=== PATIENT | female | born 1945 | race Caucasian/White ===

== ENCOUNTER → 2017-05-16 | Outpatient (CLI) | payer MEDICARE, OTHER | LOC: LAB 07:03 | DX: E78.00 Pure hypercholesterolemia, unspecified (principal) ==

== ENCOUNTER → 2017-05-30 | Outpatient (CLI) | payer MEDICARE, OTHER | LOC: CARDREHAB 08:39 | DX: E78.00 Pure hypercholesterolemia, unspecified (principal); I44.0 Atrioventricular block, first degree; Z82.49 Family history of ischemic heart disease and other diseases of the circulatory system; E11.9 Type 2 diabetes mellitus without complications; I25.2 Old myocardial infarction | CPT/HCPCS: A9500 ==

== ENCOUNTER → 2018-08-17 | Outpatient (CLI) | payer MEDICARE, OTHER | LOC: RAD 16:11 | DX: M16.0 Bilateral primary osteoarthritis of hip (principal); M79.604 Pain in right leg ==

== ENCOUNTER → 2018-08-20 | Outpatient (CLI) | payer MEDICARE, OTHER | LOC: RAD 07:51 | DX: R22.41 Localized swelling, mass and lump, right lower limb (principal); M79.604 Pain in right leg ==

== ENCOUNTER → 2018-08-26 | Outpatient (CLI) | payer MEDICARE, OTHER | LOC: RAD 11:04 | DX: M81.0 Age-related osteoporosis without current pathological fracture (principal); M51.36 Other intervertebral disc degeneration, lumbar region; M41.86 Other forms of scoliosis, lumbar region; M79.604 Pain in right leg ==

== ENCOUNTER → 2018-09-22 | Outpatient (CLI) | payer MEDICARE, OTHER ==
[2018-09-22 08:53] LABS: ALBUMIN 4.2 g/dL (3.5-5.0); CALCIUM 9.6 mg/dL (8.4-10.2); POTASSIUM 4.2 mmol/L (3.6-5.0); TOTAL BILIRUBIN 0.5 mg/dL (0.2-1.3); TOTAL PROTEIN 6.6 g/dL (6.3-8.2)
== END ==
LOC: LAB 08:15
PROVIDERS: Family Medicine
DX: E78.00 Pure hypercholesterolemia, unspecified (principal)

== ENCOUNTER → 2018-09-28 | Outpatient (CLI) | payer MEDICARE, OTHER | LOC: RAD 14:15 | DX: M25.451 Effusion, right hip (principal); R22.41 Localized swelling, mass and lump, right lower limb; M79.651 Pain in right thigh; M54.5 Low back pain ==

== ENCOUNTER → 2019-11-26 | Outpatient (CLI) | payer MEDICARE, OTHER ==
[2019-11-26 09:40] LABS: ALBUMIN 4.3 g/dL (3.4-4.8)
[2019-11-26 09:41] LABS: CALCIUM 9.2 mg/dL (8.3-10.5)
[2019-11-26 09:42] LABS: TOTAL PROTEIN 6.7 g/dL (6.2-8.1)
[2019-11-26 09:44] LABS: TOTAL BILIRUBIN 0.5 mg/dL (0.2-1.2)
== END ==
LOC: LAB 09:04
PROVIDERS: Family Medicine
DX: E78.00 Pure hypercholesterolemia, unspecified (principal)

== ENCOUNTER → 2020-02-16 | Outpatient (CLI) | payer MEDICARE, OTHER ==
[2020-02-16 15:32] LABS: POTASSIUM 3.9 mmol/L (3.5-5.1)
[2020-02-16 15:33] LABS: CALCIUM 9.3 mg/dL (8.3-10.5)
== END ==
LOC: LAB 14:25
PROVIDERS: Family Medicine
DX: R60.0 Localized edema (principal)

== ENCOUNTER → 2020-12-29 | Outpatient (CLI) | payer MEDICARE, OTHER ==
[2020-12-29 08:10] LABS: ALBUMIN 4.1 g/dL (3.4-4.8)
[2020-12-29 08:13] LABS: TOTAL PROTEIN 6.3 g/dL (6.2-8.1)
[2020-12-29 08:15] LABS: TOTAL BILIRUBIN 0.5 mg/dL (0.2-1.2)
[2020-12-29 08:18] LABS: DIRECT BILIRUBIN 0.2 mg/dL (0.0-0.5)
== END ==
LOC: LAB 07:41
PROVIDERS: Family Medicine
DX: E78.00 Pure hypercholesterolemia, unspecified (principal)

== ENCOUNTER → 2021-09-12 | Outpatient (CLI) | payer MEDICARE, OTHER | LOC: RAD 13:43 | DX: M47.812 Spondylosis without myelopathy or radiculopathy, cervical region (principal); M43.12 Spondylolisthesis, cervical region; R42 Dizziness and giddiness; M54.6 Pain in thoracic spine ==

== ENCOUNTER → 2021-09-18 | Outpatient (CLI) | payer MEDICARE, OTHER | LOC: MAMMO 15:51 | DX: M85.80 Other specified disorders of bone density and structure, unspecified site (principal) ==

== ENCOUNTER → 2021-12-31 | Outpatient (CLI) | payer MEDICARE, OTHER ==
[2021-12-31 12:40] LABS: POTASSIUM 3.9 mmol/L (3.5-5.1)
[2021-12-31 12:41] LABS: ALBUMIN 4.1 g/dL (3.4-4.8)
[2021-12-31 12:43] LABS: TOTAL PROTEIN 6.4 g/dL (6.2-8.1)
[2021-12-31 12:45] LABS: TOTAL BILIRUBIN 0.6 mg/dL (0.2-1.2)
== END ==
LOC: LAB 08:32
PROVIDERS: Family Medicine
DX: E78.00 Pure hypercholesterolemia, unspecified (principal)

== ENCOUNTER → 2022-02-11 | Outpatient (CLI) | payer MEDICARE, OTHER ==
[~2022-02-11] MED LIST: ALEVE220 M1 PO; HYDROCHLOROTH12.5 M1 PO; SIMVASTATIN80 MG PO; VITAMIN D3125 MC1 PO; ZOFRAN ODT4 MG PO
[2022-02-11 17:07] LABS: BASO # 0.03 K/mm3 (0.02-0.10); EOS # 0.16 K/mm3 (0.04-0.40); HEMATOCRIT 37.1 % (37.0-47.0); HEMOGLOBIN 11.7 g/dL (12.5-16.0); MEAN CELL VOLUME 94 fl (78-100); MEAN CORPUSCULAR HEMOGLOBIN 30 pg (27-31); MEAN CORPUSCULAR HGB CONC 32 g/dL (33-37); MEAN PLATELET VOLUME 9.5 fl (7.4-10.4); MONO # 0.84 K/mm3 (0.20-0.80); NEU # 5.28 K/mm3 (1.40-6.50); PLATELET COUNT 269 K/mm3 (130-400); RED BLOOD COUNT 3.93 M/mm3 (4.10-5.30); RED CELL DISTRIBUTION WIDTH 12.8 % (11.5-14.5); WHITE BLOOD COUNT 7.9 K/mm3 (4.8-10.8)
[2022-02-11 17:19] LABS: POTASSIUM 3.9 mmol/L (3.5-5.1)
[2022-02-11 17:20] LABS: ALBUMIN 3.8 g/dL (3.4-4.8)
[2022-02-11 17:21] LABS: CALCIUM 9.4 mg/dL (8.3-10.5)
[2022-02-11 17:22] LABS: TOTAL PROTEIN 6.1 g/dL (6.2-8.1)
[2022-02-11 17:24] LABS: TOTAL BILIRUBIN 0.3 mg/dL (0.2-1.2)
[2022-02-11 21:47] LABS: ERYTHROCYTE SEDIMENTATION RATE 10 mm/hr (0-30)
== END ==
LOC: LAB 16:48
PROVIDERS: Family Medicine
DX: R19.7 Diarrhea, unspecified (principal); R10.9 Unspecified abdominal pain

== ENCOUNTER → 2022-02-12 | Outpatient (CLI) | payer MEDICARE, OTHER | LOC: LAB 10:42 | DX: R19.7 Diarrhea, unspecified (principal) ==

== ENCOUNTER → 2022-02-13 | Outpatient (CLI) | payer MEDICARE, OTHER | LOC: RAD 14:56 | DX: R19.7 Diarrhea, unspecified (principal) ==

== ENCOUNTER 2022-02-21 11:53 | Observation (INO) | payer MEDICARE, OTHER ==
[~2022-02-21] VITALS: Ht 165.1 cm; Wt 63.7 kg
--- NOTE | 2022-02-21 12:47 | NUR ---
OBSERVATION ADMIT FROM CLINIC FOR N/V/D AND RUQ TENDERNESS. PATIENT PRESENTS PER W/C WITH SON, MARY. HIS PHONE NUMBER IS [phone]. PATIENT LIVES AT HOME ALONE. QUITE CAPABLE OF TRANSFERRING INDEPENDENTLY FROM W/C TO BED. EDUCATION PROVIDED REGARDING ADMISSION AND ORIENT TO ROOM/CALL LIGHT. PATIENT REPORTS SX ONGOING FOR 5-6 WEEKS. ABD DISCOMFORT STARTS AT CENTER AND THEN BECOMES DIFFUSE CRAMPING. SHORTLY AFTER, PATIENT HAS TO PASS AN URGENT STOOL; USUALLY ALL LIQUID. TOOK A ZOFRAN THIS MORNING AND THIS HAS HELPED SIGNIFICANTLY WITH NAUSEA.
[2022-02-21 13:31] LABS: ALBUMIN 3.5 g/dL (3.4-4.8); POTASSIUM 3.8 mmol/L (3.5-5.1)
[2022-02-21 13:34] LABS: TOTAL PROTEIN 5.7 g/dL (6.2-8.1)
[2022-02-21 13:35] LABS: TOTAL BILIRUBIN 0.4 mg/dL (0.2-1.2)
[2022-02-21 13:38] VITALS: BP 90/48
[2022-02-21 13:39] LABS: DIRECT BILIRUBIN 0.2 mg/dL (0.0-0.5)
[2022-02-21] MEDS ORDERED: ALEVE220 M1 PO (14:31)
[2022-02-21] MEDS ORDERED: HYDROCHLOROTH12.5 M1 PO (14:31)
[2022-02-21] MEDS ORDERED: VITAMIN D3125 MC1 PO (14:31)
[2022-02-21] MEDS ORDERED: SIMVASTATIN80 MG PO (14:33)
[2022-02-21 17:28] VITALS: BP 116/67
[2022-02-21 18:15] LABS: URINE APPEARANCE HAZY; URINE BILIRUBIN NEGATIVE (NEGATIVE); URINE BLOOD NEGATIVE (NEGATIVE); URINE COLOR YELLOW; URINE GLUCOSE NEGATIVE (NEGATIVE); URINE KETONE NEGATIVE (NEGATIVE); URINE LEUKOCYTE ESTERASE NEGATIVE (NEGATIVE); URINE MUCUS PRESENT (NOT PRESENT); URINE NITRATE NEGATIVE (NEGATIVE); URINE PROTEIN(semi-quant) 1+ (NEGATIVE); URINE UROBILINOGEN NORMAL (NORMAL)
--- NOTE | 2022-02-21 19:20 | NUR ---
REPORT PROVIDED TO LEA LAWRENCE.
--- NOTE | 2022-02-21 20:45 | NUR ---
Report received from Umm at shift change. Patient resting supine in bed watching TV. IVF infusing NS at 100 ML/HR. Site patent to LFA. A/O x4. Denies pain or nausea at this time. States has intermittent Nausea and pain, (cramping) especially after eating. Having intermittent loose stools. Assessment completed. POC and medications discussed. Denies wants or needs at this time.
[2022-02-21 22:47] VITALS: BP 116/71
--- NOTE | 2022-02-21 23:22 | NUR ---
Has been up to BR and had 2 liquid BM's and passing alot of gas.
[2022-02-22 02:34] VITALS: BP 100/62
--- NOTE | 2022-02-22 05:44 | NUR ---
Awakened for schedule Zofran and vital signs. Reports that she had 4 loose liquid BM's this shift. IVF continue infusing at 100 ML/HR. Site patent. Intermittent cramping with BM's.
[2022-02-22 06:23] VITALS: BP 108/69
--- NOTE | 2022-02-22 07:45 | NUR ---
Report to Roseanna DASILVA.
[2022-02-22] MEDS ORDERED: ZOFRAN ODT4 MG PO (09:22)
[2022-02-22 10:09] VITALS: BP 109/67
--- NOTE | 2022-02-22 11:07 | NUR ---
Patient alert and oriented. Denies pain. States that taking the zofran and not eating has helped her pain. Reports loose stools x5 last night. Patient denies dizziness or shortness of breath. Patient discharged to home, then has appointment for EGD at [facility]- @ 1500 today. Patient is to arrive at 1440. INT to left forearm left in place for procedure. Patient is instructed to remain NPO until after her procedure. Patient verbalizes understanding and denies needs or questions at this time. Out of facility via wheelchair to PO. Transfers into POV with out incident. Steady gait noted.
== END 2022-02-22 11:07 | disposition home or self-care (01) ==
LOC: MED/SURG 11:53
PROVIDERS: Family Medicine; ADMIT Nurse Practitioner
DX: R11.2 Nausea with vomiting, unspecified (principal); R19.7 Diarrhea, unspecified; R10.11 Right upper quadrant pain; R19.09 Other intra-abdominal and pelvic swelling, mass and lump; I10 Essential (primary) hypertension; Z79.899 Other long term (current) drug therapy
CPT/HCPCS: G0378; G0379; J2405; J7030

== ENCOUNTER → 2022-05-17 | Outpatient (CLI) | payer MEDICARE, OTHER | LOC: CARDREHAB 09:45 | DX: I10 Essential (primary) hypertension (principal); E78.00 Pure hypercholesterolemia, unspecified | CPT/HCPCS: A9500 ==

== ENCOUNTER → 2023-01-18 | Outpatient (CLI) | payer MEDICARE, OTHER ==
[2023-01-18 10:12] LABS: ALBUMIN 4.1 g/dL (3.4-4.8)
[2023-01-18 10:13] LABS: CALCIUM 9.3 mg/dL (8.3-10.5)
[2023-01-18 10:16] LABS: TOTAL BILIRUBIN 0.5 mg/dL (0.2-1.2)
== END ==
LOC: LAB 08:24
PROVIDERS: Family Medicine
DX: Z00.00 Encounter for general adult medical examination without abnormal findings (principal); Z11.59 Encounter for screening for other viral diseases; Z13.6 Encounter for screening for cardiovascular disorders; Z13.1 Encounter for screening for diabetes mellitus; I10 Essential (primary) hypertension; Z71.89 Other specified counseling

== ENCOUNTER → 2023-01-30 | Outpatient (CLI) | payer MEDICARE, OTHER | LOC: LAB 08:42 | DX: I10 Essential (primary) hypertension (principal); E78.00 Pure hypercholesterolemia, unspecified; M43.13 Spondylolisthesis, cervicothoracic region; M47.892 Other spondylosis, cervical region; R26.2 Difficulty in walking, not elsewhere classified; R42 Dizziness and giddiness; M85.80 Other specified disorders of bone density and structure, unspecified site ==

== ENCOUNTER → 2024-01-22 | Outpatient (CLI) | payer MEDICARE, OTHER | LOC: MAMMO 15:00 | DX: Z12.31 Encounter for screening mammogram for malignant neoplasm of breast (principal); N64.89 Other specified disorders of breast ==

== ENCOUNTER → 2024-01-22 | Outpatient (CLI) | payer MEDICARE, OTHER ==
[2024-01-22 16:08] LABS: CALCIUM 9.8 mg/dL (8.3-10.5)
[2024-01-22 23:47] LABS: CREATININE OTHER SOURCE 73 mg/dL (63-166)
== END ==
LOC: LAB 15:31
PROVIDERS: Family Medicine
DX: I10 Essential (primary) hypertension (principal); E78.2 Mixed hyperlipidemia